=== PATIENT | female | born 1985 | race Caucasian/White ===

== ENCOUNTER 2016-05-11 11:32 | Emergency (ER) | payer BC, OTHER ==
[2016-05-11 13:54] VITALS: BP 129/78
--- NOTE | 2016-05-11 13:57 | ED ---
Kamari Suarez Adam, scribed for Rhonda Olmos MD on 05/11/16 at 1312 . Headache - HPI Summary HPI Summary: Pt is a 30 year old female presenting with sinus AGUILERA. She states that she has been having pressure behind her temples for approximately 8 weeks. She does not have a lifelong Hx of sinus problems. She was given Imitrex for migraines but it did not alleviate her AGUILERA. She went to [address] [place] [address] 5 days ago and was given Azithromycin for sinus infection which has not been alleviating her AGUILERA either. She feels congested in her sinuses and has post-nasal drip but is unable to produce mucus. She also c/o severe anxiety. No tobacco/alcohol/drugs. PMHx of gastroparesis and depression (last on antidepressants at least 10 years ago). FMHx of HTN (mother) and depression. - History Of Current Complaint Chief Complaint: EDGeneral Stated Complaint: HEADACHE/SINUS PAIN/ANXIETY Time Seen by Provider: 05/11/16 13:01 Hx Obtained From: Patient Onset/Duration: Gradual Onset, Started weeks ago, Still Present Initially Headache Was: Moderate Currently Pain Is: Moderate Timing: Constant Character: Pressure - Sinus Location of Headache: Temporal Aggravating Factor: Nothing Allevating Factors: Nothing Associated Signs And Symptoms: Other (Noted In Comments) - Sinus congestion, post-nasal drip - Allergies/Home Medications Allergies/Adverse Reactions: Allergies Allergy/AdvReac Type Severity Reaction Status Date / Time Penicillins Allergy Mild Rash Verified 12/19/12 08:50 PMH/Surg Hx/FS Hx/Imm Hx Endocrine/Hematology History: Denies: Hx Diabetes, Hx Thyroid Disease Cardiovascular History: Denies: Hx Hypertension Respiratory History: Denies: Hx Asthma GI History: Reports: Other GI Disorders - Gastroparesis History: Denies: Hx Kidney Infection, Other Problems/Disorders Psychiatric History: Denies: Hx Anxiety, Hx Depression, Other Psychiatric Issues/Disorders Infectious Disease History: No Infectious Disease History: Denies: Traveled Outside the [place] in Last 30 Days - Family History Known Family History: Positive: Hypertension - Mother, Other - Depression ( parents) - Social History Occupation: Employed Full-time Lives: With Family - Mother Alcohol Use: None Hx Substance Use: No Substance Use Type: Reports: None Hx Tobacco Use: No Smoking Status (MU): Never Smoked Tobacco Review of Systems Positive: Other - Sinus congestion, post-nasal drip. Negative: Epistaxis, Dental Pain, Sore Throat Positive: Headache - Sinus Positive: Anxious All Other Systems Reviewed And Are Negative: Yes Physical Exam Triage Information Reviewed: Yes Vital Signs On Initial Exam: Initial Vitals Temp Pulse Resp BP Pulse Ox 98.3 F 98 18 138/90 99 05/11/16 11:34 05/11/16 11:34 05/11/16 11:34 05/11/16 11:34 05/11/16 11:34 Vital Signs Reviewed: Yes Appearance: Positive: Well-Appearing, No Pain Distress Skin: Positive: Warm, Skin Color Reflects Adequate Perfusion, Dry Eyes: Positive: EOMI, GERARD ENT: Positive: Pharynx normal, TMs normal Neck: Positive: Supple, Nontender Respiratory/Lung Sounds: Positive: Clear to Auscultation, Breath Sounds Present. Negative: Rales, Rhonchi, Wheezes Cardiovascular: Positive: RRR. Negative: Murmur, Rub Abdomen Description: Positive: Nontender, Soft. Negative: Distended, Guarding Bowel Sounds: Positive: Present Musculoskeletal: Positive: Strength/ROM Intact. Negative: Edema Left, Edema Right Neurological: Positive: Sensory/Motor Intact, Alert, Oriented to Person Place, Time, CN Intact II-III Psychiatric: Positive: Affect/Mood Appropriate Diagnostics - Vital Signs Vital Signs Temp Pulse Resp BP Pulse Ox 05/11/16 11:34 98.3 F 98 18 138/90 99 - Laboratory Lab Statement: Any lab studies that have been ordered have been reviewed, and results considered in the medical decision making process. Headache Course/Dx - Course Course Of Treatment: 30 yo female with increasing anxiety difficulty sleeping and sinusitis for at least a month.Given probable failed treatment of sinusitis giving levaquin pt aware of tendon tear risk and pt denies suicidiality. Pt has had success on antidepressants started zoloft and gave her ativan tabs to help with anxiety short term. - Diagnoses Provider Diagnoses: Sinusitis, Anxiety Discharge - Discharge Plan Condition: Stable Disposition: HOME Prescriptions: LORazepam TAB(*) [Ativan 0.5 MG TAB (*)] 0.5 mg PO Q8H PRN #20 tab MDD 3 PRN Reason: Anxiety Levofloxacin TAB* [Levaquin TAB*] 750 mg PO DAILY #10 tab Sertraline* [Zoloft*] 50 mg PO BEDTIME #30 tab Patient Education Materials: Sinusitis (ED), Anxiety (ED) Referrals: Nikolay ALVES. Ceferino Ocasio [Primary Care Provider] - Additional Instructions: Follow up with your Primary Care Physician this week. The documentation as recorded by the Kamari mane Adam accurately reflects the service I personally performed and the decisions made by me, Rhonda Olmos MD.
== END 2016-05-11 13:52 | disposition home or self-care (01) ==
LOC: ED 11:32
DX: J32.9 Chronic sinusitis, unspecified (principal); R09.82 Postnasal drip; R51 Headache; F41.9 Anxiety disorder, unspecified; R09.81 Nasal congestion
CPT/HCPCS: 99282